=== PATIENT | female | born 1965 | race Caucasian/White ===

== ENCOUNTER 2023-07-23 23:22 | Emergency (ER) | payer BC, OTHER ==
[2023-07-23] MEDS ORDERED: MORPHINE 4 MG/ML SYR ONE (23:38)
[2023-07-23] MEDS ORDERED: ONDANSETRON 4 MG/2 ML VIAL ONE (23:38)
[2023-07-23 23:45] LABS: Absolute Lymphocytes (CBC) 3.9 K/uL (0.7-4.9); Hematocrit 42.1 % (36.0-45.0); Lymphocytes % 36.5 % (15.3-44.8); MCV 86.2 fL (80-100); MPV 8.6 fL (7.6-11.3); Platelets 271 thou/uL (152-406); RBC Red Blood Cell Count 4.89 M/uL (3.86-4.86)
[2023-07-23 23:53] LABS: Protime INR 1.05
[2023-07-24 00:03] LABS: Troponin High Sensitivity 41.9 pg/mL (<58.9)
--- NOTE | 2023-07-24 02:13 | EDPHYS ---
Physician Documentation [facility] Name: Mine Arthur Age: 57 yrs Sex: Female : 1965 Arrival Date: 07/23/2023 Time: 23:22 Bed 2 Private MD: ED Physician HPI: 07/23 23:33 This 57 yrs old Female presents to ER via Ambulatory with complaints of chest ec2 pain. 23:33 Patient arrives today for evaluation of chest pain. States pain been ongoing for ec2 approximately 1 hour, described as substernal without radiating symptoms. Patient reports no cough or cold symptoms, no leg swelling. No cardiac history. Does report history of hypertension, on losartan.. Historical: - Allergies: 23:46 No Known Allergies; km8 - Home Meds: 23:46 losartan oral [Active]; 8 - PMHx: 23:46 Hypertensive disorder; 8 - PSHx: 23:46 Appendectomy; 8 - Immunization history:: Client reports receiving the 2nd dose of the Covid vaccine, Flu vaccine is not up to date. - Social history:: Smoking status: Patient denies any tobacco usage or history of. Patient uses alcohol, occasionally. Patient/guardian denies using street drugs. ROS: 23:33 Constitutional: as per hpi ec2 Exam: 23:33 Constitutional: GEN: NAD Head: atraumatic Eyes: EOMI Ears: External ears are ec2 normal. CV: regular rate LUNGS: no respiratory distress ABD: non-distended SKIN: no evidence of rashes MSK: no evidence of trauma NEURO: moves all extremities equally Vital Signs: 23:27 BP 156 / 81; Pulse 80; Resp 18; Temp 96.9(TE); Pulse Ox 100% on R/A; Weight 104.78 kg km8 (R); Height 5 ft. 3 in. (R); Pain 4/10; 07/24 00:00 BP 124 / 69; Pulse 77; Resp 16; Pulse Ox 100% on R/A; km8 00:30 BP 118 / 63; Pulse 72; Resp 16; Pulse Ox 98% on R/A; km8 01:00 BP 107 / 50; Pulse 72; Resp 16; Pulse Ox 97% on R/A; km8 01:30 BP 110 / 54; Pulse 72; Resp 16; Pulse Ox 96% on R/A; [facility] 02:00 BP 109 / 55; Pulse 70; Resp 16; Pulse Ox 95% on R/A; [facility] 07/23 23:27 Body Mass Index 40.92 (104.78 kg, 160.02 cm) [facility] 07/23 23:27 Pain Scale: Adult [facility] Karime Coma Score: 07/23 23:27 Eye Response: spontaneous(4). Motor Response: obeys commands(6). Verbal Response: [facility] oriented(5). Total: 15. MDM: 23:28 Patient medically screened. ec2 23:33 ED course: Patient arrives today for evaluation of chest pain. Examination remarkable ec2 for well-appearing nontoxic individual is otherwise in no acute distress with a reassuring examination. Will obtain lab work, EKG, chest x-ray and treat the patient's pain. Currently evaluating for ACS, low suspicion for PE or dissection.. 23:39 ED course: EKG independently reviewed and interpreted by me, shows normal sinus rhythm, ec2 rate of 67, no acute ST segment elevations, nonconcerning intervals.. 18 00:06 Data reviewed: vital signs, nurses notes. ED course: Metabolic profile with slight ec2 hypokalemia potassium of 3.0. CBC reassuring, BNP within normal ranges, troponin within normal ranges. Will obtain repeat EKG and troponin at 2 hours. . 00:28 ED course: Chest x-ray independently reviewed and interpreted by me, shows no acute ec2 intrathoracic process. Will obtain a 2-hour repeat EKG and Trope.. 01:40 ED course: Repeat EKG independently reviewed and interpreted by me, shows normal sinus ec2 rhythm, rate of 68, no acute ST segment elevations, nonconcerning intervals.. 02:11 ED course: Repeat troponin is static. Will discharge home and have him follow-up with [facility] primary care doctor and cardiology. Return precautions given. All suspicion for PE or dissection as well.. 07/23 23:31 Order name: Basic Metabolic Panel; Complete Time: 00:05 ec2 07/23 23:31 Order name: CBC with Diff; Complete Time: 00:06 ec2 07/23 23:31 Order name: NT PRO-BNP; Complete Time: 00:06 ec2 07/23 23:31 Order name: PT-INR; Complete Time: 00:06 ec2 07/23 23:31 Order name: Troponin HS; Complete Time: 00:06 ec2 07/24 01:19 Order name: Troponin High Sensitivity; Complete Time: 02:11 ec2 07/23 23:31 Order name: XRAY Chest (1 view) ec2 07/23 23:31 Order name: EKG; Complete Time: 23:32 ec2 07/23 23:31 Order name: Cardiac monitoring; Complete Time: 23:35 ec2 07/23 23:31 Order name: EKG - Nurse/Tech; Complete Time: 23:35 ec2 07/23 23:31 Order name: IV Saline Lock; Complete Time: 23:35 ec2 07/23 23:31 Order name: Labs collected and sent; Complete Time: 23:35 ec2 07/23 23:31 Order name: O2 Per Protocol; Complete Time: 23:35 ec2 07/23 23:31 Order name: O2 Sat Monitoring; Complete Time: 23:35 ec2 07/24 01:19 Order name: EKG - Nurse/Tech; Complete Time: 01:45 ec2 Administered Medications: 07/23 23:43 Drug: morphine IVP or IV 4 mg IVP once over 4 mins Route: IVP; Infused Over: 4 mins; [facility] Site: right antecubital; 07/24 01:45 Follow up: Response: No adverse reaction [facility] 07/23 23:43 Drug: Ondansetron IVP 4 mg IVP once; over 2 minutes Route: IVP; Site: right antecubital;[facility] 07/24 01:45 Follow up: Response: No adverse reaction [facility] Disposition Summary: 07/24/23 02:12 Discharge Ordered Notes: Location: Home ec2 Condition: Stable ec2 Diagnosis - Chest pain, unspecified ec2 Followup: ec2 - With: Private Physician - When: - Reason: Recheck today's complaints Discharge Instructions: - Discharge Summary Sheet ec2 - Nonspecific Chest Pain, Adult ec2 Forms: - Medication Reconciliation Form ec2 - Thank You Letter ec2 - Antibiotic Education ec2 - Prescription Opioid Use ec2 - Patient Portal Instructions ec2 - Leadership Thank You Letter ec2 Signatures: Dispatcher [employer] Finesse Arroyo MD MD 2 Brandy Mir RN RN km8
--- NOTE | 2023-07-24 02:13 | ER ---
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 Coronavirus screen: Client denies travel out of the [place] in the last 14 days. Ebola Screen: No symptoms or risks identified at this time. Initial Sepsis Screen: Does the patient meet any 2 criteria? No. Patient's initial sepsis screen is negative. Does the patient have a suspected source of infection? No. Patient's initial sepsis screen is negative. Risk Assessment: Do you want to hurt yourself or someone else? Patient reports no desire to harm self or others. Onset of symptoms was July 23, 2023 at 22:25. 23:27 Method Of Arrival: Ambulatory km8 23:27 Acuity: ANA LILIA 2 km8 Triage Assessment: 23:27 General: Appears in no apparent distress. uncomfortable, Behavior is calm, cooperative, km8 appropriate for age. Pain: Complains of pain in mid-sternal area Pain radiates to back Pain currently is 4 out of 10 on a pain scale. Quality of pain is described as dull, pressure, Pain began 1 hour ago. EENT: No signs and/or symptoms were reported regarding the EENT system. Neuro: Level of Consciousness is awake, alert, obeys commands, Oriented to person, place, time, situation. Cardiovascular: Reports chest pain, nausea, Capillary refill < 3 seconds Patient's skin is warm and dry. Rhythm is sinus rhythm Chest pain quality is pressure, is located in anterior chest wall radiates back began 1 hour prior to arrival. Respiratory: Airway is patent Respiratory effort is even, unlabored, Respiratory pattern is regular, symmetrical. GI: Reports nausea. : No signs and/or symptoms were reported regarding the genitourinary system. Derm: No signs and/or symptoms reported regarding the dermatologic system. Skin is intact, is healthy with good turgor, Skin is dry, Skin is pink, warm \\T\\ dry. normal, Skin temperature is warm. Musculoskeletal: No signs and/or symptoms reported regarding the musculoskeletal system. Circulation, motion, and sensation intact. Range of motion: intact in all extremities. Historical: - Allergies: 23:46 No Known Allergies; km8 - Home Meds: 23:46 losartan oral [Active]; km8 - PMHx: 23:46 Hypertensive disorder; km8 - PSHx: 23:46 Appendectomy; km8 - Immunization history:: Client reports receiving the 2nd dose of the Covid vaccine, Flu vaccine is not up to date. - Social history:: Smoking status: Patient denies any tobacco usage or history of. Patient uses alcohol, occasionally. Patient/guardian denies using street drugs. Screenin:27 [facility] ED Fall Risk Assessment (Adult) History of falling in the last 3 months, km8 including since admission No falls in past 3 months (0 pts) Confusion or Disorientation No (0 pts) Intoxicated or Sedated No (0 pts) Impaired Gait No (0 pts) Mobility Assist Device Used No (0 pt) Altered Elimination No (0 pt) Score/Fall Risk Level 0 - 2 = Low Risk Oriented to surroundings, Maintained a safe environment, Educated pt \\T\\ family on fall prevention, incl call for assistance when getting out of bed, Assessed \\T\\ reinforced patient's understanding of fall precautions. Abuse screen: Denies threats or abuse. Denies injuries from another. Nutritional screening: No deficits noted. Tuberculosis screening: No symptoms or risk factors identified. Assessment: 23:27 General: see triage assessment/notes. 07/24 00:00 Reassessment: Patient appears in no apparent distress at this time. No changes from 8 previously documented assessment. Patient and/or family updated on plan of care and expected duration. Pain level reassessed. Patient is alert, oriented x 3, equal unlabored respirations, skin warm/dry/pink. 01:00 Reassessment: Patient appears in no apparent distress at this time. No changes from 8 previously documented assessment. Patient and/or family updated on plan of care and expected duration. Pain level reassessed. Patient is alert, oriented x 3, equal unlabored respirations, skin warm/dry/pink. 02:00 Reassessment: Patient appears in no apparent distress at this time. No changes from km8 previously documented assessment. Patient and/or family updated on plan of care and expected duration. Pain level reassessed. Patient is alert, oriented x 3, equal unlabored respirations, skin warm/dry/pink. Vital Signs: 07/23 23:27 BP 156 / 81; Pulse 80; Resp 18; Temp 96.9(TE); Pulse Ox 100% on R/A; Weight 104.78 kg km8 (R); Height 5 ft. 3 in. (R); Pain 4/10; 07/24 00:00 BP 124 / 69; Pulse 77; Resp 16; Pulse Ox 100% on R/A; km8 00:30 BP 118 / 63; Pulse 72; Resp 16; Pulse Ox 98% on R/A; km8 01:00 BP 107 / 50; Pulse 72; Resp 16; Pulse Ox 97% on R/A; km8 01:30 BP 110 / 54; Pulse 72; Resp 16; Pulse Ox 96% on R/A; km8 02:00 BP 109 / 55; Pulse 70; Resp 16; Pulse Ox 95% on R/A; km8 07/23 23:27 Body Mass Index 40.92 (104.78 kg, 160.02 cm) [facility] 07/23 23:27 Pain Scale: Adult km8 Karime Coma Score: 07/23 23:27 Eye Response: spontaneous(4). Motor Response: obeys commands(6). Verbal Response: km8 oriented(5). Total: 15. ED Course: 23:24 Patient arrived in ED. ec2 23:25 Finesse Schaffer MD is Attending Physician. ec2 23:27 No provider procedures requiring assistance completed. Patient maintains SpO2 km8 saturation greater than 95% on room air. 23:27 Arm band placed on right wrist. km8 23:27 Patient has correct armband on for positive identification. Placed in gown. Bed in low km8 position. Call light in reach. Side rails up X2. Client placed on continuous cardiac and pulse oximetry monitoring. NIBP monitoring applied. Door closed. Noise minimized. Warm blanket given. 23:30 Inserted saline lock: 20 gauge in right antecubital area, using aseptic technique. km8 Blood collected. 23:35 Brandy Mir RN is Primary Nurse. km8 23:35 Basic Metabolic Panel Sent. km8 23:35 CBC with Diff Sent. km8 23:35 NT PRO-BNP Sent. km8 23:35 PT-INR Sent. km8 23:35 Troponin HS Sent. km8 23:46 Triage completed. km8 23:58 XRAY Chest (1 view) In Process Unspecified. EDMS 07/24 02:28 IV discontinued, intact, bleeding controlled, No redness/swelling at site. Pressure km8 dressing applied. :28 Provided Education on: d/c teaching. km8 Administered Medications: 07/23 23:43 Drug: morphine IVP or IV 4 mg IVP once over 4 mins Route: IVP; Infused Over: 4 mins; km8 Site: right antecubital; 07/24 01:45 Follow up: Response: No adverse reaction km8 07/23 23:43 Drug: Ondansetron IVP 4 mg IVP once; over 2 minutes Route: IVP; Site: right antecubital;km8 07/24 01:45 Follow up: Response: No adverse reaction km8 Medication: 07/23 23:27 VIS not applicable for this client. km8 Outcome: 07/24 02:12 Discharge ordered by . ec2 02:28 Discharged to home ambulatory, km8 02:28 Condition: good 02:28 Discharge instructions given to patient, significant other, Instructed on discharge instructions, follow up and referral plans. Demonstrated understanding of instructions, follow-up care, 02:29 Patient left the ED. km8 Signatures: Dispatcher [employer] EDWV Finesse Schaffer MD MD ec2 Brandy Mir RN RN km8
[2023-07-24 02:42] VITALS: BP 109/55; TEMP 96.9; O2SAT 95
--- NOTE | 2023-07-25 10:57 | EKG ---
Test Date: 2023-07-24 Test Time: 01:31:06 Bilingual Student Tutor: BARBY MEASUREMENT RESULTS: Intervals: Rate: 68 LA: 144 QRSD: 92 QT: 420 QTc: 446 [place]: P: 67 LA: 144 QRS: 24 T: 31 INTERPRETIVE STATEMENTS: Normal sinus rhythm Normal ECG Compared to ECG 07/23/2023 23:34:02 No significant changes Electronically Signed On 07-25-23 10:56:01 TIME STAMP ASSEMBLER by Jose Stratton
--- NOTE | 2023-07-25 10:58 | EKG ---
Test Date: 2023-07-23 Test Time: 23:34:02 Wire Fence Erector: THADDEUS MEASUREMENT RESULTS: Intervals: Rate: 67 W[place]: 150 QRSD: 90 QT: 432 QTc: 456 [place]: P: 71 [place]: 150 QRS: 28 T: 33 INTERPRETIVE STATEMENTS: Normal sinus rhythm Normal ECG Compared to ECG 04/12/1995 16:43:00 No significant changes Electronically Signed On 07-25-23 10:56:16 ENVIRONMENTAL HEALTH SANITARIAN by Jose Stratton
--- NOTE | 2023-07-25 11:46 | RAD REPORT ---
EXAM DESCRIPTION: RAD - Chest Single View - 07/23/2023 11:56 pm CLINICAL HISTORY: 57 years Female, CHEST PAIN COMPARISON: None. FINDINGS: Single portable AP upright view of the chest. Trachea is midline. Normal size of the cardi ac silhouette. No pulmonary vascular congestion. No focal consolidation, pleural effusion, or pneumot horax. No acute osseous abnormality. IMPRESSION: No acute radiographic abnormality. Electronically signed by: Tiffanie Panda MD 07/24/2023 12:20 AM SEMICONDUCTOR PROCESSOR Due to temporary technical issues with the PACS/Fluency reporting system, reports are being signed by the in house radiologist without review as a courtesy to ensure prompt reporting. The interpreting r adiologist is fully responsible for the content of the report.
== END 2023-07-24 02:29 | disposition home or self-care (01) ==
LOC: ER 23:22
DX: R07.9 Chest pain, unspecified (principal); I10 Essential (primary) hypertension
CPT/HCPCS: 93005 ×2; 85025; 80048; 36415; 85610; 84484; 83880; 71045; 96375; 96374; 99285; J2405